=== PATIENT | male | born 1960 | race Caucasian/White ===

== ENCOUNTER → 2023-04-29 | Outpatient (CLI) | payer BC ==
--- NOTE | 2023-04-29 10:40 | XR ---
EXAMINATION TYPE: XR chest 2V DATE OF EXAM: 04/29/2023 10:31 AM COMPARISON: Chest radiographs from 04/29/2023 TECHNIQUE: XR chest 2V Frontal and lateral views of the chest. CLINICAL INDICATION:Male, 62 years old with history of C61; FINDINGS: Lungs/Pleura: Low lung volumes are present. There is no evidence of pleural effusion, focal consolida tion, or pneumothorax. Pulmonary vascularity: Unremarkable. Heart/mediastinum: Cardiomediastinal silhouette is unremarkable. Musculoskeletal: No acute osseous pathology. IMPRESSION: No acute cardiopulmonary disease/process.
[2023-04-29 17:04] LABS: Basophils # (A) 0.04 X 10*3/uL (0.00-0.10); Basophils % (A) 0.6 %; Eosinophils # (A) 0.09 X 10*3/uL (0.04-0.35); Eosinophils % (A) 1.4 %; HCT 53.2 % (39.6-50.0); HGB 17.4 d/dL (12.0-15.0); Lymphocytes # (A) 1.57 X 10*3/uL (0.90-5.00); Lymphocytes % (A) 24.2 %; MCH 29.3 pg (27.0-32.0); MCHC 32.7 d/dL (32.0-37.0); MCV 89.6 FL (80.0-97.0); Monocytes # (A) 0.45 X 10*3/uL (0.20-1.00); Monocytes % (A) 6.9 %; NRBC Per 100 WBC 0 X 10*3/uL (0.00-0.01); Neutrophils # (A) 4.29 X 10*3/uL (1.80-7.70); Neutrophils % (A) 66.3 %; Platelet Count 254 X 10*3/uL (140-440); RBC 5.94 X 10*6/uL (4.40-5.60); RDW 13.5 % (11.5-14.5); WBC 6.48 X 10*3/uL (4.50-10.00)
[2023-04-29 17:08] LABS: BUN/Creat Ratio 15.89 Ratio (12.00-20.00); Blood Urea Nitrogen 14.3 mg/dL (9.0-27.0); Chloride 104 mmol/L (96-109); Glucose 113 mg/dL (70-110); Potassium 4.3 mmol/L (3.5-5.5); Sodium 138 mmol/L (135-145)
[2023-04-29 17:46] LABS: Bacteria,Urine None Seen (None Seen)
[2023-04-29 18:14] LABS: Appearance,Urine Turbid (Clear); Bilirubin,Urine Negative (Negative); Blood,Urine Negative (Negative); Color,Urine Yellow (Yellow); Ketones,Urine Trace (Negative); Nitrite,Urine Negative (Negative); Specific Gravity,Urine 1.023 (1.001-1.030)
== END | disposition home or self-care (01) ==
LOC: LABPAT 09:20
PROVIDERS: ATTEND Urology
DX: Z01.818 Encounter for other preprocedural examination (principal); C61 Malignant neoplasm of prostate
CPT/HCPCS: 71046; 80048; 81001; 85025; 87086

== ENCOUNTER 2023-05-06 05:51 | Day surgery (SDC) | payer BC ==
--- NOTE | 2023-05-05 12:10 | P.HPIHPCON ---
History of Present Illness H&P Date: 05/05/23 Chief Complaint: prostate cancer This is a 62-year-old male with history of [place] 7(4+3) prostate cancer. Option of a robotic radical prostatectomy versus radiation therapy was discussed with him in detail. He agreed to proceed with a robotic radical prostatectomy. Aware of the risk which includes but not limited to bleeding, infection, urinary incontinence, erectile dysfunction, injury to nearby organs. Risk of anesthesia was also discussed with him. Aware of risk of cancer recurrence and potential of needing additional treatments. Discussed also the need a postoperative surveillance. He understood all the risk and agreed to proceed Consent for Procedure: I have explained the operation/procedure to the patient, including the risks, benefits, side effects, alternative therapies (including not receiving the proposed treatment or service), the likelihood of the patient achieving his/her goals, and potential recuperation problems for the procedure/sedation/analgesia, as well as any blood products, if indicated. I also explained to the patient the risks, benefits and side effects of the alternatives, as well as the risks related to not receiving the proposed procedure, care, treatment, or services. Past Medical History Past Medical History: Hypertension, Prostate Disorder, Thyroid Disorder Additional Past Medical History / Comment(s): elevated psa , snores History of Any Multi-Drug Resistant Organisms: None Reported Past Surgical History: Cholecystectomy, Joint Replacement, Orthopedic Surgery Additional Past Surgical History / Comment(s): colonoscopy, arthroscopic knee , total rt knee Past Anesthesia/Blood Transfusion Reactions: No Reported Reaction Additional Past Anesthesia/Blood Transfusion Reaction / Comment(s): no blood transfusions Smoking Status: Never smoker - Past Family History Father Family Medical History: Cancer Additional Family Medical History / Comment(s): rectal Medications and Allergies Home Medications Medication Instructions Recorded Confirmed Type Ibuprofen [Motrin Ib] 600 mg PO DIRECTED PRN 04/28/23 04/28/23 History Levothyroxine Sodium [Synthroid] 75 mcg PO DAILY 04/28/23 04/28/23 History Losartan Potassium 50 mg PO DAILY 04/28/23 04/28/23 History Allergies Allergy/AdvReac Type Severity Reaction Status Date / Time Penicillins Allergy Unknown Verified 04/28/23 14:23 Surgical - Exam - General no distress, no pain - Eyes normal ocular movement, no pale - ENT normal nares, normal mucosa - Respiratory normal expansion, normal respiratory effort - Abdomen Abdomen: soft, non tender Assessment and Plan Assessment: OR for robotic radical prostatectomy with pelvic lymph node dissection
[~2023-05-06 05:51] MED LIST: HEPARIN SODIUM,PORCINE/PF 5,000 UNIT/0.5 ML SYRINGE SQ PRN
[2023-05-06] MEDS ORDERED: droPERidol 5 MG/2 ML VIAL IVP ONE (06:03)
[2023-05-06] MEDS ORDERED: DEXAMETHASONE SOD PHOSPHATE 4 MG/ML 1 ML VIAL IV ONE (06:03)
[2023-05-06] MEDS ORDERED: LIDOCAINE 1% (10MG/ML) FOR IV START INTRADERMA PRN (06:03)
[2023-05-06] MEDS ORDERED: ONDANSETRON 4 MG/2 ML VIAL IVP ONE ×2 (06:03→12:35)
[2023-05-06] MEDS ORDERED: LACTATED RINGERS 1,000 ML IV ONE (06:43)
[2023-05-06] MEDS: LACTATED RINGERS 1,000 ML IV SCH (06:43)
[2023-05-06] MEDS ORDERED: HYDROmorphone 0.5 MG/0.5 ML SYRINGE IVP PRN (07:00)
[2023-05-06] MEDS ORDERED: MIDAZOLAM 2 MG/2 ML VIAL IVP ONE (07:09)
[2023-05-06] MEDS ORDERED: SUCCINYLCHOLINE CHLORIDE 200 MG/10 ML VIAL IV ONE (07:31)
[2023-05-06] MEDS ORDERED: PROPOFOL 10 MG/ML 20 ML VIAL IV ONE (07:31)
[2023-05-06] MEDS ORDERED: ROPIVACAINE 5 MG/ML 30 ML VIAL ONE (07:31)
[2023-05-06] MEDS ORDERED: SODIUM CHLORIDE 0.9% (PF) 10 ML VIAL ONE (07:31)
[2023-05-06] MEDS ORDERED: DEXAMETHASONE SOD PHOSPHATE 4 MG/ML 1 ML VIAL ONE (07:31)
[2023-05-06] MEDS ORDERED: HYDROmorphone (PF) 1 MG/ML ONE (07:31)
[2023-05-06] MEDS ORDERED: ROCURONIUM 10 MG/ML (5 ML VIAL) IV ONE (07:31)
[2023-05-06] MEDS ORDERED: NEOSTIGMINE 1 MG/ML 10 ML VIAL ONE (07:31)
[2023-05-06] MEDS ORDERED: KETAMINE 10 MG/ML 20 ML VIAL ONE (07:31)
[2023-05-06] MEDS ORDERED: fentaNYL (PF) 50 MCG/ML 2 ML AMP ONE (07:31)
[2023-05-06] MEDS ORDERED: LIDOCAINE 2% INJ 20 MG/ML (2 ML VIAL) ONE (07:31)
[2023-05-06] MEDS ORDERED: GLYCOPYRROLATE 0.2 MG/ML 2 ML VIAL ONE (07:31)
[2023-05-06] MEDS ORDERED: ONDANSETRON 4 MG/2 ML VIAL IVP PRN (07:45)
[2023-05-06] MEDS ORDERED: HYDROmorphone 1 MG/ML 1 ML SYRINGE IVP PRN (07:45)
[2023-05-06] MEDS ORDERED: SODIUM CHLORIDE 0.9% 100 ML with ceFAZolin 3,000 MG IV ONE ×2 (07:50)
[2023-05-06] MEDS ORDERED: ceFAZolin 1,000 MG VIAL ONE (07:50)
[2023-05-06] MEDS ORDERED: SODIUM CHLORIDE 0.9% 100 ML BAG ONE (07:50)
[2023-05-06] MEDS ORDERED: BUPIVACAINE (PF) 0.25% 30 ML VIAL SQ ONE ×2 (08:41→11:34)
--- NOTE | 2023-05-06 11:40 | P.OP ---
Date of Procedure: 05/06/23 Preoperative Diagnosis: prostate cancer Postoperative Diagnosis: Same Procedure(s) Performed: Robotic-assisted laparoscopic radical prostatectomy with pelvic lymph node dissection Implants: none Anesthesia: ARMINDA Surgeon: Brown Kim Account Engineer #1: Robert Frederick Estimated Blood Loss (ml): 150 Pathology: other (Prostate, bilateral seminal vesicle, bilateral pelvic lymph nodes) Condition: stable Disposition: PACU Indications for Procedure: This is a 62-year-old male with history of [place] 7(4+3) prostate cancer. Option of a robotic radical prostatectomy versus radiation therapy was discussed with him in detail. He agreed to proceed with a robotic radical prostatectomy. Aware of the risk which includes but not limited to bleeding, infection, urinary incontinence, erectile dysfunction, injury to nearby organs. Risk of anesthesia was also discussed with him. Aware of risk of cancer recurrence and potential of needing additional treatments. Discussed also the need a postoperative surveillance. He understood all the risk and agreed to proceed Description of Procedure: After preoperative antibiotics were started, the patient was taken to the operating room. Anesthesia was induced and the patient was placed in a supine position, with adequate padding of the pressure points, shoulders, back, legs and arms. He was then prepped and draped in the standard fashion. A critical pause was performed using two patient identifiers. A 16F givens catheter was placed to gravity drainage. A pneumo-peritoneum was created with placement of a Veress needle to 20 mm Hg without complication, and a 8 Fr trocar was placed above the umbillicus. Under direct vision a 8mm robotic ports was placed lateral to each rectus slightly below the camera port. The left iliac fossa 8mm port was placed. The right ophthalmic medical assistant right iliac fossa 12mm port and right paramedian 5mm portwere placed. After the patient was placed in the trendelenberg position, the robot was then docked to the 8mm robotic ports and then each robotic arm and tower was checked in relation to the patient's legs and hands to avoid inadvertent compression. The peritoneal cavity was inspected. An inverted U-shaped incision began laterally to the left medial umbilical ligament and extended high across the midline to the right umbilical ligament. The limbs of the "U" extended to the level of the vasa on both sides. We next developed the preperitoneal space and the space of Retzius. Cautery was used to dissected the bladder away from the prostate. After the anterior bladder neck was incised and the bladder entered the the posterior bladder neck was exposed and the ureteral orifces identified. The posterior bladder neck was then incised and dissected away from the prostate. The vas and the seminal vesicles were now exposed and dissected to their insertions into the prostate and were not spared. The posterior layer of the Denonvillier's fascia was incised to enter julio césar the plane between prostate and perirectal fat. Each lateral pedicle was controlled with vessel sealer. No nerve preservation was performed on the left, complete nerve preservation was performed on the right. The puboprostatic ligament was incised where it inserted into the apex of the prostate and a plane between urethra and dorsal venous complex developed to expose the anterior urethral surface. The anterior wall of the urethra was transected with the cut setting a few millimeters distal to the apex of the prostate. The dorsal vein was ligated using 3-0 V lock bilateral obturator and external iliac lymph node packets were carefully dissected after careful visualization of the hypogastric artery and obturator nerve. There was careful attention paid to hemostasis with judicious use of cautery. The urethrovesical anastomosis was performed . the posterior denovillers was reapproximated using 3-0 V lock. A 6 and 9inch 3-0 V-Lock suture was used to anastomose the urethra and bladder, starting at the 6:00 posterior position. Mucosa was secured in every stitch, to ensure a mucosa to mucosa anastomosis. The stitch was regularly cinched and the anastomosis tightened. Care was taken to not violate the ureteral orifices. The Givens catheter was advanced, the bladder filled, and the anastomosis was tested, as described above. Anastomsis was watertight at 150 mL The periumbilical fascia was closed with 1-0-PDS suture in [id number] fashion. All ports were closed with a subcuticular 4-0 monocryl and Dermabond. Sponge, instrument, and needle counts were correct at the end of the case x2. All specimens including prostate and lymph nodes were sent to pathology for diagnosis and will be available in a week. The patient tolerated the surgery well and without complication. He awoke without difficulty and was taken to the recovery room in stable condition
[2023-05-06] MEDS: KETOROLAC 15 MG/ML 1 ML VIAL IVP SCH ×3 (14:12→23:32)
[2023-05-06] MEDS: D5-0.45% NACL WITH KCL 20MEQ/L 1,000 ML IV SCH ×2 (14:42→21:59)
[2023-05-06] MEDS: HEPARIN SODIUM,PORCINE/PF 5,000 UNIT/0.5 ML SYRINGE SQ SCH ×2 (17:14→23:33)
[2023-05-07] MEDS: KETOROLAC 15 MG/ML 1 ML VIAL IVP SCH (05:09)
[2023-05-07] MEDS: D5-0.45% NACL WITH KCL 20MEQ/L 1,000 ML IV SCH (05:09)
[2023-05-07] MEDS: LACTATED RINGERS 1,000 ML IV SCH (06:18)
[2023-05-07] MEDS ORDERED: LEVOTHYROXINE 75 MCG TAB PO SCH (06:30)
--- NOTE | 2023-05-07 07:42 | P.DS ---
Providers Attending physician: Brown Kim MD Primary care physician: [facility] Course: The patient underwent a robotic rad prostatectomy by Dr Kim 05/06/23. His post op course was uneventful He will be d/cd home with a foly and fu with Dr kim in 10 days for cath removal and path report Plan - Discharge Summary Discharge Rx Participant: No New Discharge Prescriptions: No Action Losartan Potassium 50 mg PO DAILY Levothyroxine Sodium [Synthroid] 75 mcg PO DAILY Ibuprofen [Motrin Ib] 600 mg PO DIRECTED PRN PRN Reason: Pain Discharge Medication List Ibuprofen [Motrin Ib] 600 mg PO DIRECTED PRN 04/28/23 [History] Levothyroxine Sodium [Synthroid] 75 mcg PO DAILY 04/28/23 [History] Losartan Potassium 50 mg PO DAILY 04/28/23 [History] Follow up Appointment(s)/Referral(s): Brown Kim MD [STAFF PHYSICIAN] - 10 Days (home with givens the patient should have an appaointment with dr kim for 10 days for cath removal) Discharge Disposition: HOME SELF-CARE
[2023-05-07] MEDS: HEPARIN SODIUM,PORCINE/PF 5,000 UNIT/0.5 ML SYRINGE SQ SCH (07:57)
[2023-05-07] MEDS ORDERED: LOSARTAN 50 MG TAB PO SCH (09:00)
[2023-05-07 10:52] VITALS: BP 115/72; PULSE 60; RESP 18; TEMP 98.4
--- NOTE | 2023-05-07 11:37 | P.ANPRN ---
Procedure Note - Anesthesia - Nerve Block Performed Bilateral Erector Spinae Single Time Out Performed: Yes Date of Procedure: 05/06/23 Procedure Start Time: : Procedure Stop Time: :15 Location of Patient: PreOp Indication: Acute Post-Operative Pain, Requested by Surgeon Sedation Type: Sedate with meaningful contact maintained Preparation: Sterile Prep Position: Supine Needle Types: Pajunk Needle Gauge: 21 Ultrasound used to visualize needle placement: Yes Ultrasound used to observe medication spread: Yes Blood Aspirated: No Pain Paresthesia on Injection Noted: No Resistance on Injection: Normal Image Stored and Saved: Yes Events: Uneventful and Well Tolerated (ropi .5% 15cc plus ns 10cc plus dexmethasone 4mg given bilaterlly at L1)
== END 2023-05-07 09:50 | disposition home or self-care (01) ==
LOC: OR 05:51 → 5NMEDONC 11:55 → OR 05-07 09:50
PROVIDERS: ATTEND Urology
DX: C61 Malignant neoplasm of prostate (principal); G89.18 Other acute postprocedural pain; I10 Essential (primary) hypertension; E07.9 Disorder of thyroid, unspecified; Z98.890 Other specified postprocedural states; Z80.0 Family history of malignant neoplasm of digestive organs; Z79.899 Other long term (current) drug therapy
CPT/HCPCS: 55866; 38570; 64999; 86900; 86901; 86850; 88307; 88309; J2250; J0330; J1100; J2710; J2405; J0690; J3010; J1170; J2795; J1885 ×2; J2704; J1644 ×2; J2001

== ENCOUNTER 2024-06-23 18:46 | Emergency (ER) | payer BC ==
[2024-06-23] MEDS ORDERED: HYDROmorphone 0.5 MG/0.5 ML SYRINGE ONE (20:08)
[2024-06-23] MEDS ORDERED: CEPHALEXIN 500 MG CAP ONE (20:08)
[2024-06-23] MEDS ORDERED: DIPH,PERTUS(ACELL)TETVAC-LF 0.5 ML VIAL IM ONE (20:08)
[2024-06-23] MEDS ORDERED: LIDOCAINE 1% INJ 10MG/ML (20 ML MDV) ONE (20:08)
[2024-06-23] MEDS ORDERED: HYDROmorphone 1 MG/ML 1 ML SYRINGE ONE (20:13)
--- NOTE | 2024-07-31 14:16 | XR ---
Report Patient: Kosta Rodriguez D Ordering Physician: Unknown, Unknown ID: [id number] Phone, Pager: Phone: N/A Pager: N/A : [phone] Age/Gender: 63Y, M Primary Location: N/A Procedure: XR RIGHT THUMB COMPLETE Study Date: 06/23/2024 8:51:34 PM EXAMINATION TYPE: XR right thumb 3 views complete DATE OF EXAM: 06/23/2024 COMPARISON: NONE HISTORY: 63-year-old male thumb injury with wood splitter, pain FINDINGS: There is a markedly comminuted fracture of the first distal phalanx. Multiple complex intra -articular extensions into the DIP joint. There is displacement up to 5 mm and angulation as well. Ad ditional echo-vq-qlwfreyl degenerative change first CMC and first MCP joints. IMPRESSION: Displaced, markedly comminuted, angulated intra-articular fracture of the first distal ph alanx. Associated soft tissue injury.
== END 2024-06-23 21:45 | disposition home or self-care (01) ==
LOC: EC 18:46
CPT/HCPCS: 12001; 90471; 90715; 99283

== ENCOUNTER → 2024-11-10 | Outpatient (CLI) | payer BC ==
--- NOTE | 2024-11-12 19:08 | PE ---
EXAMINATION TYPE: PET CT fusion skull to thigh DATE OF EXAM: 11/10/2024 CLINICAL INDICATION:Male, 64 years old with history of C61 PROSTATE CANCER; TECHNIQUE: Following the intravenous administration of 6.17 mCi of Ga-68 Illuccix (PSMA), whole bod y images are performed from the skull base to the midthigh. Images are reviewed on the computer in t he coronal, axial, and sagittal planes. Reconstructed rotating images are created on independent wor kstation and reviewed on the computer. A non-contrast CT is performed in conjunction with the PET s can. CT DLP: 12:15 mGycm, Automated exposure control for dose reduction was used. COMPARISON: CT None, PET/CT None, MRI: None FINDINGS: Mediastinal SUV mean is 2.9. Hepatic parenchyma SUV mean is 3.1 SKULL BASE AND NECK: No suspicious radiotracer activity. CHEST, MEDIASTINUM, AND HILAR REGION: No suspicious radiotracer activity. ABDOMEN AND PELVIS: No suspicious radiotracer activity. MUSCULOSKELETAL STRUCTURES: No suspicious radiotracer activity. OTHER CT: Atherosclerosis of the arterial stricture. Coronary artery atherosclerosis. Gallbladder surgically ab sent. Scattered colonic diverticula. Right hip arthroplasty changes. Right renal cyst. IMPRESSION: No suspicious uptake or enlarged lymph nodes identified. PSA is rising consider short-term follow-up. [facility], , 11/12/2024 7:05 PM
== END | disposition home or self-care (01) ==
LOC: RADPETMAIN 11:19
PROVIDERS: ATTEND Urology
DX: C61 Malignant neoplasm of prostate (principal); Z85.46 Personal history of malignant neoplasm of prostate
CPT/HCPCS: 78815; A9596